=== PATIENT | male | born 1945 | race Caucasian/White ===

== ENCOUNTER 2016-10-20 21:29 | Emergency (ER) | payer MEDICARE ==
[~2016-10-20 21:29] MED LIST: ASCO500C PO; HYDR-2768 PO; LISI-363 PO; METO50TA PO; OMEP20TA39 PO; SERT25TA83 PO; SIMV80TA PO; TAB-TAB PO; TERA2CAP3 PO; Z.0.WALKERFRONT
[2016-10-20 21:35] VITALS: BP 136/63; PULSE 89; RESP 24; TEMP 98; O2SAT 96
[2016-10-20] MEDS ORDERED: SODIUM CHLORIDE 0.9% FLUSH 10 ML FLUSH IVF PRN (21:45)
[2016-10-20] MEDS ORDERED: SERT25TA83 PO (21:49)
[2016-10-20] MEDS ORDERED: OMEP20TA PO (21:49)
[2016-10-20] MEDS ORDERED: DOXY100C PO (21:49)
[2016-10-20] MEDS ORDERED: SIMV80TA PO (21:49)
[2016-10-20] MEDS ORDERED: LISI-515 PO (21:49)
[2016-10-20] MEDS ORDERED: AMLO10TA2 PO (21:49)
[2016-10-20] MEDS ORDERED: TERA2CAP3 PO (21:49)
[2016-10-20] MEDS ORDERED: HYDR25TA5 PO (21:49)
[2016-10-20 22:00] VITALS: O2SAT 95
[2016-10-20] MEDS: RESP: ALBUTEROL 2.5 MG/IPRATROPIUM 0.5 MG NEB (SCH) INH (22:01)
--- NOTE | 2016-10-20 22:01 | PD ---
HPI Chief Complaint: Respiratory Symptoms Time Seen by Provider: 21:55 Travel History International Travel<30 days: No Contact w/Intl Traveler<30days: No Traveled to known affect area: No History of Present Illness HPI 71-year-old male that presents to the ED for evaluation of shortness of breath. Patient reports that he has had a cough and runny nose as well as congestion since yesterday. Patient went to see his doctor Dr. Fernández today and was started on doxycycline as well as albuterol nebulizer. Per patient she's had pneumonia and bronchitis in the past and requiring breathing treatments. He denies any actual diagnosis of COPD or asthma on himself. Per patient today will he was at home he had a severe episode where he could not catch his breath. Per patient he was coughing a lot. Ambulance was called and they gave him 3 breathing treatments with some improvement of his symptoms. Per patient he still feels off. Per patient he denies any abdominal pain or chest pain. Per patient he has a lot of cough which is productive. Per patient his cough is productive with white stuff. He denies any blood. He denies any nausea or vomiting. No diarrhea. States having some fevers but no chills or sweats. Has no allergies to medication. States compliance with his medications including the nebulizer but states that he was not able to use a nebulizer at home where he had this acute attack secondary to his attack been so severe. PFSH Past Medical History Arthritis: Yes Blood Disorders: No Anxiety: Yes Depression: Yes Cancer: No Cardiac Catheterization: Yes Cardiovascular Problems: No High Cholesterol: Yes COPD: Yes Diminished Hearing: Yes ([place]; hearing aides) Endocrine: No Gastrointestinal Disorders: Yes GERD: Yes Genitourinary: No Hepatitis: No Hiatal Hernia: No Hypertension: Yes Immune Disorder: No Medical other: Yes (HIGH CHOLESTEROL) Musculoskeletal: Yes (ARTHRITIS) Neurologic: No Psychiatric: Yes (DEPRESSION) Respiratory: Yes (COPD) Immunizations Current: Yes Pneumonia: Yes Tetanus Vaccination: < 5 Years Influenza Vaccination: Yes Past Surgical History Body Medical Devices: NONE Oral Surgery: Yes (TONSILLECTOMY) Other Surgery: Yes (back sx) Social History Alcohol Use: Yes (occas) Tobacco Use: No Substance Use: No Allergies-Medications (Allergen,Severity, Reaction): Coded Allergies: No Known Allergies (Unverified , 10/20/16) Reported Meds & Prescriptions Reported Meds & Active Scripts Active Prednisone 20 Mg Tab 20 Mg PO BID Reported Doxycycline Hyclate 100 Mg Cap 100 Mg PO BID Amlodipine (Amlodipine Besylate) 10 Mg Tab 10 Mg PO DAILY Omeprazole 20 Mg Tab 20 Mg PO DAILY Terazosin (Terazosin HCl) 2 Mg Cap 2 Mg PO HS Sertraline (Sertraline HCl) 25 Mg Tab 25 Mg PO DAILY Lisinopril 20 Mg Tab 20 Mg PO BID Simvastatin 80 Mg Tab 80 Mg PO DAILY Hydrochlorothiazide 25 Mg Tab 25 Mg PO DAILY Review of Systems Except as stated in HPI: all other systems reviewed are Neg Physical Exam Narrative GENERAL: SKIN: Warm and dry. HEAD: Atraumatic. Normocephalic. EYES: Pupils equal and round. No scleral icterus. No injection or drainage. ENT: No nasal bleeding or discharge. Mucous membranes pink and moist. Tongue is midline. No uvula deviation. TMs are clear without sign of infection or perforation. No mastoid tenderness. No lymphadenopathy noted. No meningeal signs noted. Tonsils are not enlarged or swollen. NECK: Trachea midline. No JVD. CARDIOVASCULAR: Regular rate and rhythm. No murmurs, S3, S4. RESPIRATORY: No accessory muscle use. Wheezing heard throughout the lower lung ny. Breath sounds equal bilaterally. GASTROINTESTINAL: Abdomen soft, non-tender, nondistended. Hepatic and splenic margins not palpable. MUSCULOSKELETAL: Extremities without clubbing, cyanosis, or edema. No obvious deformities. Full range of motion of the upper and lower extremities bilaterally. 2+ pulses bilaterally. NEUROLOGICAL: Awake and alert. No obvious cranial nerve deficits. Motor grossly within normal limits. Five out of 5 muscle strength in the arms and legs. Normal speech. PSYCHIATRIC: Appropriate mood and affect; insight and judgment normal. Data Data Last Documented VS Vital Signs Date Time Temp Pulse Resp B/P Pulse Ox O2 Delivery O2 Flow Rate FiO2 10/20/16 22:00 95 Nasal Cannula 2.00 10/20/16 21:35 98.0 89 24 136/63 Orders Electrocardiogram (10/20/16 21:36) Basic Metabolic Panel (Bmp) (10/20/16 21:36) Complete Blood Count With Diff (10/20/16 21:36) Chest, Single Ap (10/20/16 21:36) Ecg Monitoring (10/20/16 21:36) Iv Access Insert/Monitor (10/20/16 21:36) Oximetry (10/20/16 21:36) Oxygen Administration (10/20/16 21:36) Albuterol-Ipratropium Neb (Duoneb Neb) (10/20/16 21:45) Sodium Chloride 0.9% Flush (Ns Flush) (10/20/16 21:45) Labs Laboratory Tests Test 10/20/16 21:50 White Blood Count 11.2 TH/MM3 Red Blood Count 4.55 MIL/MM3 Hemoglobin 14.1 GM/DL Hematocrit 41.1 % Mean Corpuscular Volume 90.4 FL Mean Corpuscular Hemoglobin 31.0 PG Mean Corpuscular Hemoglobin 34.3 % Concent Red Cell Distribution Width 13.3 % Platelet Count 153 TH/MM3 Mean Platelet Volume 9.2 FL Neutrophils (%) (Auto) 59.9 % Lymphocytes (%) (Auto) 25.7 % Monocytes (%) (Auto) 7.6 % Eosinophils (%) (Auto) 6.5 % Basophils (%) (Auto) 0.3 % Neutrophils # (Auto) 6.7 TH/MM3 Lymphocytes # (Auto) 2.9 TH/MM3 Monocytes # (Auto) 0.9 TH/MM3 Eosinophils # (Auto) 0.7 TH/MM3 Basophils # (Auto) 0.0 TH/MM3 CBC Comment DIFF FINAL Differential Comment MDM Medical Decision Making Medical Screen Exam Complete: Yes Emergency Medical Condition: Yes Medical Record Reviewed: Yes Interpretation(s) Last Impressions Chest X-Ray 10/20/162135 Signed Impressions: Service Date/Time: Thursday, October 20, 2016 21:54 - CONCLUSION: Right lower lobe infiltrate. Demarcus Wilde Jr., MD CBC & BMP Diagram 10/20/16 21:50 Differential Diagnosis Respiratory distress versus pneumonia versus bronchitis versus upper respiratory infection Narrative Course 71-year-old male that presents to the ED for evaluation of shortness of breath. Patient was properly examined and was found to have signs and symptoms consistent appears to be reactive airway disease. Labs and imaging ordered. Patient already received 3 breathing treatments and Solu-Medrol by ambulance. Patient was given 2 more breathing treatments here. Labs and imaging showed possible right lower consolidation otherwise unremarkable. Patient does have a slight levels account. At this time patient was rechecked and feels completely improved. Patient's wheezing is completely gone. Patient's O2 status as well as respiratory rate is improved. I believe the patient's symptoms are likely secondary to early pneumonia with reactive airway disease. Patient was reassured. At this time patient agrees with been discharged home. Patient will be given a prescription for prednisone 20 mg as he was recently prescribed a Medrol Dosepak and I think he would likely do better with stronger steroid doses. Patient agrees with this plan. I instructed the patient to continue taking the doxycycline which should cover for the pneumonia. He was instructed to see ED for any worsening symptoms. Case discussed with my attending who agrees with plan. Follow with PCP. Diagnosis Primary Impression: Pneumonia Qualified Code: J18.1 - Pneumonia of right lower lobe due to infectious organism Additional Impression: Reactive airway disease Qualified Code: J45.20 - Reactive airway disease, mild intermittent, uncomplicated Patient Instructions: General Instructions Additional Instructions: Stop the penicillin pack. Take the prednisone given to you here. You can do up to 3 Duonebs within a 4 hour time to help with your symptoms as needed. Follow up closely with PCP. See ED for any worsening symptoms or you feel like it using too much of your duoneb treatments. Med/Other Pt SpecificInfo: Prescription(s) given Scripts Prednisone 20 Mg Tab20 Mg PO BID #10 TAB Prov:Elizabeth Meraz MD 10/20/16 Disposition: 01 DISCHARGE HOME Condition: Stable Matt Ruiz October 20, 2016 22:01
--- NOTE | 2016-10-20 22:03 | RADRPT ---
EXAM DATE/TIME: 10/20/2016 21:54 [facility] COMPARISON: No previous studies available for comparison. INDICATIONS : Shortness of breath. MEDICAL HISTORY : None. SURGICAL HISTORY : Spinal cord stimulator ENCOUNTER: Initial ACUITY: 1 day PAIN SCORE: 0/10 LOCATION: Bilateral chest FINDINGS: A single portable frontal view the chest shows an intraalveolar opacity within the medial right lung base. Left lung is clear. No effusions. Heart is normal in size. Stimulator overlies the spine. Degen erative spine noted. CONCLUSION: Right lower lobe infiltrate. Demarcus Wilde Jr., MD on October 20, 2016 at 22:00 Board Certified Radiologist. This report was verified electronically.
[2016-10-20 22:26] LABS: AUTOMATED NEUTROPHIL # 6.7 TH/MM3 (1.8-7.7); BASOPHIL % 0.3 % (0.0-2.0); EOSINOPHIL # 0.7 TH/MM3 (0-0.4); EOSINOPHIL % 6.5 % (0.0-4.0); HEMATOCRIT 41.1 % (39.0-51.0); HEMO FLAGS DIFF FINAL; LYMPH % 25.7 % (9.0-44.0); LYMPHOCYTE # 2.9 TH/MM3 (1.0-4.8); MEAN CELL VOLUME 90.4 FL (80.0-100.0); MEAN CORPUSCULAR HGB CONC 34.3 % (32.0-36.0); MONO % 7.6 % (0.0-8.0); NEUT % 59.9 % (16.0-70.0); PLATELET COUNT 153 TH/MM3 (150-450); RED BLOOD COUNT 4.55 MIL/MM3 (4.50-5.90); RED CELL DISTRIBUTION WIDTH 13.3 % (11.6-17.2); WHITE BLOOD COUNT 11.2 TH/MM3 (4.0-11.0)
[2016-10-20] MEDS ORDERED: PRED20 PO (22:41)
[2016-10-20 23:05] LABS: BICARBONATE 25.7 MEQ/L (21.0-32.0)
[2016-10-20 23:06] LABS: POTASSIUM 2.9 MEQ/L (3.5-5.1)
[2016-10-20] MEDS ORDERED: POTASSIUM CHLORIDE 10 MEQ CAP PO ONE (23:15)
[2016-10-20] MEDS ORDERED: POTASSIUM CHLORIDE INJ 10 MEQ in SODIUM CHLOR 0.9% 1000 ML INJ 1,000 ML IV SCH (23:15)
[2016-10-20] MEDS ORDERED: POTASSIUM CHLOR 10 MEQ PREMIX 100 ML IV ONE (23:30)
--- NOTE | 2016-10-21 16:18 | EKG ---
Date Performed: 10/20/2016 Time Performed: 21:43:16 PTAGE: 71 years EKG: Sinus rhythm with PACs Since prevoius tracing 03/23/2014, PACs are new, otherwise no significant change. PREVIOUS TRACING : 03/23/2014 11.36 DOCTOR: Daniel Woods Interpretating Date/Time 10/21/2016 16:16:15
== END 2016-10-21 02:50 | disposition home or self-care (01) ==
LOC: NEPE 21:29
DX: J18.9 Pneumonia, unspecified organism (principal); E78.00 Pure hypercholesterolemia, unspecified; I10 Essential (primary) hypertension; F41.8 Other specified anxiety disorders
CPT/HCPCS: 71010; 80048; 85025; 93005; 94640; 94664; 96374; 99285; J3480

== ENCOUNTER → 2016-12-21 | Outpatient (CLI) | payer MEDICARE ==
[~2016-12-21] MED LIST changes: +AMLO10TA2 PO; -ASCO500C PO; +DOXY100C PO; -HYDR-2768 PO; +HYDR25TA5 PO; -LISI-363 PO; +LISI-515 PO; -METO50TA PO; +OMEP20TA PO; -OMEP20TA39 PO; +PRED20 PO; -TAB-TAB PO; -Z.0.WALKERFRONT
[2016-12-21 09:56] LABS: BLOOD GAS BASE EXCESS -1.1 mmol/L (-2-2); BLOOD GAS CARBOXYHEMOGLOBIN 1.6 % (0-4); BLOOD GAS HCO3 23 mmol/L (22-26); BLOOD GAS O2 HGB SATURATION 95 % (90-100); BLOOD GAS OXYGEN CONTENT 19.5 Vol % (12.0-20.0); BLOOD GAS PCO2 34 mmHg (38-42); BLOOD GAS PO2 88 mmHg (61-120); BLOOD GAS TOTAL HGB 14.6 G/DL (12.0-16.0); TEMP CORR TO 98.6
[2016-12-21 09:57] LABS: CRITICAL VALUE NO; DRAW SITE RT RADIAL; FIO2 21 %; NUMBER OF ARTERIAL PUNCTURES 1; STAT NO; ULNAR PULSE PRESENT
--- NOTE | 2016-12-22 09:21 | RSPPFT ---
DATE OF PROCEDURE: 12/21/16 COMMENTS: Spirometry with FVC of 3.5 predicted 4.9, FEV1 of 2.5 predicted 3.9, FEV1/FVC ratio 71% predicted 77%. Post-bronchodilator FVC increases to 4.0. Mild air trapping is present with RV at 2.7 predicted 2.6. DLCO is 60% of predicted. IMPRESSION: On the basis of the above, patient has minimal restriction with some responsiveness to acutely inhaled bronchodilator. DLCO is decreased.
== END ==
LOC: HRSP 08:58
PROVIDERS: ATTEND Internal Medicine Pulmonary Disease
DX: G47.30 Sleep apnea, unspecified (principal)
CPT/HCPCS: 36600; 82805; 94060; 94620; 94726; 94729